=== PATIENT | female | born 1960 | race African-American/Black ===

== ENCOUNTER → 2019-10-20 | Outpatient (CLI) | payer OTHER ==
[~2019-10-20] MED LIST: ALBU2.5V14 NEB; AMLO2.5T5 PO; ARIP2TAB35 PO; BACL10TA PO; BUPIVACAINE MPF 0.25% 10 ML VIAL. ONE; BUPR100T8 PO; CHOL500021 PO; DICL50TA2 PO; HYDR-2155 PO; HYDR12.572 PO; LACT10SO26 PO; LIDOCAINE 1% PF 30 ML VIAL. ONE; LISI2.5T PO; LORA2ORA2 PO; LORA5SOL43 PO; MELA1TAB9 PO; METF500T16 PO; MIRT7.5T8 PO; OLAN5TAB9 PO; PRED1TAB PO; PREG50CA PO; TIZANIDINE HCL2 M1 PO; ZOLP5TAB5 PO; [UNRECOGNIZED DRUG - OTHER]; methylPREDNISolone ACETATE 40 MG/ML VIAL. ONE
[2019-10-20 12:26] VITALS: BP 161/93
== END | disposition home or self-care (01) ==
LOC: SURG 11:14
PROVIDERS: ATTEND Anesthesiology Pain Medicine
DX: M19.011 Primary osteoarthritis, right shoulder (principal); I10 Essential (primary) hypertension; M47.812 Spondylosis without myelopathy or radiculopathy, cervical region; M47.816 Spondylosis without myelopathy or radiculopathy, lumbar region; F43.10 Post-traumatic stress disorder, unspecified; Z91.041 Radiographic dye allergy status; Z91.013 Allergy to seafood
CPT/HCPCS: 20610; 77002; J1030; J2001; J3490; 20611

== ENCOUNTER → 2019-11-24 | Day surgery (SDC) | payer OTHER ==
[~2019-11-24] MED LIST changes: -BUPIVACAINE MPF 0.25% 10 ML VIAL. ONE; -LIDOCAINE 1% PF 30 ML VIAL. ONE; -methylPREDNISolone ACETATE 40 MG/ML VIAL. ONE
[2019-11-24 08:29] VITALS: BP 117/68
== END ==
LOC: SURG 08:10
PROVIDERS: ATTEND Anesthesiology Pain Medicine
DX: M47.812 Spondylosis without myelopathy or radiculopathy, cervical region (principal); M47.816 Spondylosis without myelopathy or radiculopathy, lumbar region; M19.011 Primary osteoarthritis, right shoulder; F43.10 Post-traumatic stress disorder, unspecified
CPT/HCPCS: 99213; G0463